=== PATIENT | male | born 1955 | race Hispanic/Latino ===

== ENCOUNTER 2019-06-17 20:32 | Inpatient (IN) | payer BC ==
[~2019-06-17] VITALS: Ht 180.3 cm; Wt 108.2 kg
[2019-06-17] MEDS ORDERED: ONDANSETRON HCL 4 MG/2 ML VIAL ONE (20:54)
[2019-06-17] MEDS ORDERED: MORPHINE SULFATE 4 MG/1ML SYG ONE ×2 (20:54→22:30)
[2019-06-17] MEDS ORDERED: SODIUM CHLORIDE 0.9% 1000ML 1,000 ML IV ONE (20:55)
[2019-06-17 21:13] LABS: APPEARANCE,URINE CLOUDY (CLEAR); BILIRUBIN,URINE SMALL (NEGATIVE); COLOR,URINE RED (YELLOW); GLUCOSE, URINE (UA) 100 mg/dL (NEGATIVE); KETONES,URINE 15 mg/dL (NEGATIVE); LEUKOCYTE ESTERASE ,URINE MODERATE (NEGATIVE); NITRATE,URINE POSITIVE (NEGATIVE); OCCULT BLOOD,URINE LARGE (NEGATIVE); PH,URINE 6.5 (5.0-8.0); PROTEIN,URINE >=300 mg/dL (NEGATIVE)
[2019-06-17 21:14] LABS: BASOPHILS % (AUTO) 1.1 % (0.0-5.0); EOSINOPHILS % (AUTO) 5.9 % (0.0-8.0); HEMATOCRIT 47.2 % (42-54); LYMPHOCYTES % (AUTO) 28.9 % (21.0-51.0); MEAN CORPUSCULAR HEMOGLOBIN 33.4 pg (27.0-33.0); MEAN CORPUSCULAR HGB CONC 33.9 g/dL (32.0-36.0); MEAN CORPUSCULAR VOLUME 98.7 fL (79-99); NEUTROPHILS % (AUTO) 53.1 % (40.0-77.0); PLATELET COUNT (AUTO) 167 K/uL (130-400); RED BLOOD CELL COUNT(AUTO) 4.78 MIL/uL (4.50-6.20); RED CELL DISTRIBUTION WIDTH 12.8 % (11.0-15.5); WHITE BLOOD COUNT (AUTO) 10.6 K/uL (4.8-10.8)
[2019-06-17] MEDS ORDERED: CEFTRIAXONE SODIUM 1 GM ONE (21:26)
[2019-06-17 21:27] LABS: CREATININE 0.8 mg/dL (0.5-1.5); POTASSIUM 3.5 mmol/L (3.5-5.1)
[2019-06-17 21:32] LABS: ALBUMIN 3.2 g/dL (3.5-5.0); BILIRUBIN,TOTAL 0.4 mg/dL (0.2-1.0); TOTAL PROTEIN, SERUM 7.2 g/dL (6.0-8.3)
[2019-06-17 21:40] LABS: BACTERIA,URINE Moderate /HPF (None Seen); RBC,URINE TNTC /HPF (0-1)
[2019-06-17 21:41] LABS: SQUAMOUS EPITHELIAL CELL,UR 0-2 /HPF (0-2)
[2019-06-17 22:07] LABS: INR 1.07 (0.85-1.15); PARTIAL THROMBOPLASTIN TIME 27.4 SEC (26.3-35.5); PROTHROMBIN TIME 11.2 SEC (9.6-11.6)
[2019-06-17] MEDS ORDERED: HYDRALAZINE HCL 20 MG/ML VIAL ONE (22:30)
[2019-06-18] MEDS: SODIUM CHLORIDE 0.9% 1000ML 1,000 ML IV SCH ×3 (00:25→21:11)
[2019-06-18] MEDS ORDERED: ONDANSETRON HCL 4 MG/2 ML VIAL IV PRN (00:30)
[2019-06-18] MEDS ORDERED: ACETAMINOPHEN 325 MG TAB PO PRN ×2 (00:30)
[2019-06-18] MEDS ORDERED: HYDRALAZINE HCL 20 MG/ML VIAL IV PRN (00:30)
[2019-06-18] MEDS: CEFTRIAXONE SODIUM 1 GM IV SCH (00:30)
[2019-06-18 07:38] LABS: ALBUMIN 2.8 g/dL (3.5-5.0); CREATININE 0.9 mg/dL (0.5-1.5); POTASSIUM 3.8 mmol/L (3.5-5.1); TOTAL PROTEIN, SERUM 6.4 g/dL (6.0-8.3)
[2019-06-18] MEDS ORDERED: METOPROLOL TARTRATE 25 MG TAB ONE (07:55)
[2019-06-18] MEDS ORDERED: SODIUM CHLORIDE 0.9% 1000ML 1,000 ML IV ONE (07:55)
[2019-06-18] MEDS ORDERED: FAMOTIDINE/PF 20 MG/2 ML VIAL IV ONE (07:55)
[2019-06-18] MEDS: FAMOTIDINE/PF 20 MG/2 ML VIAL IV SCH ×2 (09:00→19:53)
[2019-06-18] MEDS: METOPROLOL TARTRATE 25 MG TAB PO SCH ×2 (09:00→19:53)
[2019-06-18 15:39] VITALS: BP 132/74
[2019-06-18 19:01] VITALS: BP 143/78
[2019-06-18 23:43] VITALS: BP 143/80
[2019-06-19] MEDS: CEFTRIAXONE SODIUM 1 GM IV SCH (01:17)
[2019-06-19] MEDS: MORPHINE SULFATE 2 MG/ML 1ML SYG IV PRN (01:17)
[2019-06-19 04:00] VITALS: BP 126/92
[2019-06-19 05:36] LABS: HEMATOCRIT 44.1 % (42-54); LYMPHOCYTES % (AUTO) 28.2 % (21.0-51.0); MEAN CORPUSCULAR HEMOGLOBIN 34.4 pg (27.0-33.0); MEAN CORPUSCULAR HGB CONC 34.5 g/dL (32.0-36.0); MEAN CORPUSCULAR VOLUME 99.7 fL (79-99); MONOCYTES % (AUTO) 10.5 % (3.0-13.0); NEUTROPHILS % (AUTO) 55.3 % (40.0-77.0); PLATELET COUNT (AUTO) 132 K/uL (130-400); RED BLOOD CELL COUNT(AUTO) 4.42 MIL/uL (4.50-6.20); RED CELL DISTRIBUTION WIDTH 12.8 % (11.0-15.5); WHITE BLOOD COUNT (AUTO) 8.9 K/uL (4.8-10.8)
[2019-06-19] MEDS: SODIUM CHLORIDE 0.9% 1000ML 1,000 ML IV SCH (06:51)
[2019-06-19 07:30] VITALS: BP 145/82
--- NOTE | 2019-06-19 08:00 | NUR ---
NOTE PATIENT CAME IN YESTERDAY WITH HEMATURIA. HE WAS HAVING URINARY RETENTION WHILE IN ER WELL. HE HAD F/C PLACED. BLEEDING HAD STOPPED ALMOST IMMEDIATELY BUT WAS ALSO SCANNED AND A LARGE LEFT RENAL MASS DISCOVERED. 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 HE HAS BEEN WITHOUT BLOOD IN URINE, NO C/O PAIN. HE DOES HAVE H/O PROSTATE CANCER AND I WILL TRY TO GET PATHOLOGY REPORTS FOR DR WILLARD. FAMILY IS AT HIS SIDE.
[2019-06-19] MEDS: FAMOTIDINE/PF 20 MG/2 ML VIAL IV SCH ×2 (10:04→20:54)
[2019-06-19] MEDS: METOPROLOL TARTRATE 25 MG TAB PO SCH ×2 (10:04→20:54)
[2019-06-19 11:00] VITALS: BP 157/89
--- NOTE | 2019-06-19 11:50 | NUR ---
NOTE DR WILLARD MADE ROUNDS AND GAVE ORDERS FOR STUDIES AND CONSULT DR TIJERINA. SPOKE TO PATIENT AND FAMILY. EXPLAINED THAT HIS KIDNEY CANCER IS A SEPARATE ISSUE FROM HIS PROSTATE CANCER AND IT TAKES PRECEDENCE OVER THE PROSTATE PROBLEM. REFER TO CHART FOR ORDERS.
--- NOTE | 2019-06-19 13:38 | NUR ---
DCP CM met with pt discussed dc plans. Pt is independent prior to admission, lives at home w/spouse. Denies any equipments/services. Feels safe to go back home, spouse able to assist with transportation and needs as necessary. DC plan to home once stable. CM to cont to follow up. Addendum: 06/19/19 at 1339 by JOSE ANGEL GARCÍA LVN CM Amended: Links added.
[2019-06-19] MEDS ORDERED: IOHEXOL-350 50ML VIAL IV ONE (15:09)
[2019-06-19 16:00] VITALS: BP 160/91
--- NOTE | 2019-06-19 17:32 | NUR ---
NOTE REMAINS STABLE. NO C/O PAIN. DR TIJERINA HAS NOT COME TO SEE PATIENT BUT HE DID ORDER [address] ABDOMEN AND WILL BE DONE TOMORROW. I INFORMED HIM ACCORDING TO HANDMADE TILE ARTIST THAT PATIENT HAD JUST HAD CT CHEST WITH AND WITHOUT CONTRAST AND THER WOULD BE RESIDUAL CONTRAST FOUND SO HE DECIDED TO HAVE THE PATIENT DO THE SCAN IN AM TOMORROW. PATIENT HAS UNDERGONE CT CHEST AND HAS BEEN INJECTED WITH ISOTOPE FOR BONE SCAN TO BE DONE LATER TODAY.
[2019-06-19 19:11] VITALS: BP 138/88
--- NOTE | 2019-06-19 22:38 | NUR ---
MD KIMMY HAMMER VISITED WITH PATIENT AND FAMILY. POC DISCUSSED. NEW ORDERS RECEIVED AND CARRIED OUT. PATIENT AWARE. NO QUESTIONS OR CONCERNS VOICED AT THIS TIME. VITALS STABLE. AFEBRILE. TOLERATING IVF WELL. NS INFUSING AT 40ML/HR. NO SIGNS OF DISTRESS NOTED. UP AD TICO. QUIROGA PATENT AND DRAINING CLEAR YELLOW URINE TO BSD. FAMILY AT BEDSIDE. CALL LIGHT WITHIN REACH. WILL CONTINUE TO BE OBSERVED. Addendum: 06/19/19 at 2240 by ROSE RUBIN RN RN Amended: Links added.
[2019-06-20] VITALS: BP 154/72
[2019-06-20] MEDS: MORPHINE SULFATE 2 MG/ML 1ML SYG IV PRN (01:33)
[2019-06-20] MEDS: CEFTRIAXONE SODIUM 1 GM IV SCH (01:33)
[2019-06-20 03:19] VITALS: BP 135/80
[2019-06-20 05:29] LABS: BASOPHILS % (AUTO) 1.1 % (0.0-5.0); EOSINOPHILS % (AUTO) 6.9 % (0.0-8.0); HEMATOCRIT 43.8 % (42-54); LYMPHOCYTES % (AUTO) 24.3 % (21.0-51.0); MEAN CORPUSCULAR HEMOGLOBIN 34.6 pg (27.0-33.0); MEAN CORPUSCULAR HGB CONC 34.6 g/dL (32.0-36.0); MEAN CORPUSCULAR VOLUME 100.1 fL (79-99); NEUTROPHILS % (AUTO) 54.7 % (40.0-77.0); NUCLEATED RED BLOOD CELLS 0.1 % (0.0-0.19); PLATELET COUNT (AUTO) 140 K/uL (130-400); RED BLOOD CELL COUNT(AUTO) 4.37 MIL/uL (4.50-6.20); RED CELL DISTRIBUTION WIDTH 12.9 % (11.0-15.5); WHITE BLOOD COUNT (AUTO) 9.1 K/uL (4.8-10.8)
[2019-06-20 05:54] LABS: ALBUMIN 2.6 g/dL (3.5-5.0); BILIRUBIN,TOTAL 0.5 mg/dL (0.2-1.0); POTASSIUM 3.4 mmol/L (3.5-5.1); TOTAL PROTEIN, SERUM 6.3 g/dL (6.0-8.3)
[2019-06-20 07:54] VITALS: BP 152/97
[2019-06-20] MEDS ORDERED: LACTULOSE 20 GM/30 ML UDCUP PO PRN (08:45)
[2019-06-20] MEDS ORDERED: LIDOCAINE 5% TOPICAL PATCH TP SCH (09:00)
[2019-06-20] MEDS: FAMOTIDINE/PF 20 MG/2 ML VIAL IV SCH (09:22)
[2019-06-20] MEDS: METOPROLOL TARTRATE 25 MG TAB PO SCH (09:22)
[2019-06-20 11:56] VITALS: BP 147/90
[2019-06-20] MEDS ORDERED: POTASSIUM CHLORIDE 20 MEQ ERTAB PO ONE (12:38)
[2019-06-20] MEDS ORDERED: CEFD300C3 PO (13:14)
[2019-06-20] MEDS ORDERED: TRAM50TA2 PO (13:14)
[2019-06-20] MEDS ORDERED: POTASSIUM CHLORIDE 20 MEQ ERTAB PO SCH (14:00)
== END 2019-06-20 14:48 | disposition home or self-care (01) | DRG 687 ==
LOC: EDH 20:32 → EDHIP 06-18 00:25 → 4BH 06-18 15:09
PROVIDERS: ADMIT Internal Medicine; ATTEND Internal Medicine
DX: C64.9 Malignant neoplasm of unspecified kidney, except renal pelvis (principal); N13.6 Pyonephrosis; R31.0 Gross hematuria; C61 Malignant neoplasm of prostate; F10.20 Alcohol dependence, uncomplicated; E66.9 Obesity, unspecified; E78.00 Pure hypercholesterolemia, unspecified; E78.5 Hyperlipidemia, unspecified; I10 Essential (primary) hypertension; M43.17 Spondylolisthesis, lumbosacral region; Z68.33 Body mass index [BMI] 33.0-33.9, adult; Z87.891 Personal history of nicotine dependence
CPT/HCPCS: 36415; 71270; 74176; 78306; 80053; 81001; 83690; 85025; 85610; 85730; 87088; A9503; G0378; J0360; J0696; J2270; J2405; J3490; J7030; Q9967

== ENCOUNTER 2023-01-18 06:30 | Day surgery (SDC) | payer OTHER ==
[2023-01-12 11:25] VITALS: BP 127/67
[2023-01-12 11:39] LABS: BASOPHILS % (AUTO) 0.9 % (0.0-5.0); EOSINOPHILS % (AUTO) 6.3 % (0.0-8.0); LYMPHOCYTES % (AUTO) 18.7 % (21.0-51.0); MEAN CORPUSCULAR HEMOGLOBIN 29.4 pg (27.0-33.0); MEAN CORPUSCULAR HGB CONC 32.5 g/dL (32.0-36.0); MEAN CORPUSCULAR VOLUME 90.3 fL (79-99); MONOCYTES % (AUTO) 8.7 % (3.0-13.0); PLATELET COUNT (AUTO) 164 K/uL (130-400); RED BLOOD CELL COUNT(AUTO) 4.87 MIL/uL (4.50-6.20); RED CELL DISTRIBUTION WIDTH 13.6 % (11.0-15.5); WHITE BLOOD COUNT (AUTO) 6.8 K/uL (4.8-10.8)
[2023-01-12 11:51] LABS: INR 1.09 (0.85-1.15); PROTHROMBIN TIME 11.8 SEC (9.6-11.6)
[2023-01-12 11:52] LABS: PARTIAL THROMBOPLASTIN TIME 31.3 SEC (26.3-35.5)
[2023-01-12 12:03] LABS: CREATININE 1.2 mg/dL (0.5-1.5); POTASSIUM 4.7 mmol/L (3.5-5.1)
[~2023-01-18] VITALS: Ht 180.3 cm; Wt 112.9 kg
[2023-01-18] VITALS (17 sets, daily range): BP systolic 127–161; BP diastolic 65–106
[~2023-01-18 06:30] MED LIST: AMLO2.5T4 PO; APIX5TAB PO; CALC-991 PO; FISH1CAP63 PO; FURO20TA4 PO; METO100T14 PO; MULT-1258 PO; SIMV-43 PO; TAMS-1 PO
[2023-01-18] MEDS ORDERED: LACTATED RINGERS 1000ML 1,000 ML IV ONE (06:38)
[2023-01-18] MEDS: CEFAZOLIN SODIUM 1 GM VIAL ONE ×2 (07:01→08:55)
[2023-01-18] MEDS ORDERED: DEXAMETHASONE SOD PHOSPHATE 10MG/ML 1ML VIAL ONE (08:07)
[2023-01-18] MEDS ORDERED: LIDOCAINE PF 100MG/5ML (2%) SYRINGE 5ML ONE (08:07)
[2023-01-18] MEDS ORDERED: MIDAZOLAM HCL 1 MG/ML 2ML VIAL ONE (08:08)
[2023-01-18] MEDS ORDERED: PROPOFOL 10 MG/ML 20ML VIAL IV ONE (08:08)
[2023-01-18] MEDS ORDERED: ONDANSETRON 4MG INJ ONE (08:08)
[2023-01-18] MEDS ORDERED: FENTANYL CITRATE PF 50 MCG/1 ML 2ML VIAL ONE (08:08)
[2023-01-18] MEDS ORDERED: BACITRACIN 28.4 GM OINT TP ONE (08:15)
[2023-01-18] MEDS ORDERED: BUPIVACAINE/PF 0.25% 10ML VIAL IJ ONE (08:16)
[2023-01-18] MEDS ORDERED: KETOROLAC 30MG VIAL (30MG/ML) ONE (09:30)
== END 2023-01-18 11:40 | disposition home or self-care (01) ==
LOC: DAH 06:30
PROVIDERS: ATTEND Urology
DX: N47.1 Phimosis (principal); Z20.822 Contact with and (suspected) exposure to COVID-19; N48.6 Induration penis plastica; N47.5 Adhesions of prepuce and glans penis; I10 Essential (primary) hypertension; I48.91 Unspecified atrial fibrillation; Z79.01 Long term (current) use of anticoagulants
CPT/HCPCS: 80048; 85025; 85610; 85730; 87426; 36415; 71045; 93005; 54161; A6260; A4663; J7120 ×2; A4606; J3010; J0690; J1100; J2001; J2250; J2704; J2405; J1885; J3490; A4215; A4223; A4222; A4221; A4600

== ENCOUNTER → 2023-04-23 | Outpatient (CLI) | payer OTHER | END | disposition home or self-care (01) | LOC: SHCH 10:00 | PROVIDERS: ATTEND Internal Medicine Cardiovascular Disease | DX: I48.0 Paroxysmal atrial fibrillation (principal) | CPT/HCPCS: 93306 ==

== ENCOUNTER 2023-06-21 07:17 | Day surgery (SDC) | payer OTHER ==
[2023-06-19 11:19] VITALS: BP 124/68; PULSE 63; RESP 16
[2023-06-19 11:25] LABS: BASOPHILS # (AUTO) 0.08 K/uL (0.00-0.20); BASOPHILS % (AUTO) 1.1 % (0.0-5.0); EOSINOPHILS # (AUTO) 0.32 K/uL (0.00-0.70); EOSINOPHILS % (AUTO) 4.4 % (0.0-8.0); IMMATURE GRANULOCYTE ABSOLUTE 0.05 K/uL (0-1); LYMPHOCYTES # (AUTO) 1.2 K/uL (1.0-4.8); LYMPHOCYTES % (AUTO) 16.6 % (21.0-51.0); MEAN CORPUSCULAR HEMOGLOBIN 29.6 pg (27.0-33.0); MEAN CORPUSCULAR HGB CONC 32.7 g/dL (32.0-36.0); MEAN CORPUSCULAR VOLUME 90.5 fL (79-99); MONOCYTES # (AUTO) 0.7 K/uL (0.1-1.0); MONOCYTES % (AUTO) 9.5 % (3.0-13.0); NEUTROPHILS # (AUTO) 4.9 K/uL (1.8-7.7); NEUTROPHILS % (AUTO) 67.7 % (40.0-77.0); PLATELET COUNT (AUTO) 169 K/uL (130-400); RED BLOOD CELL COUNT(AUTO) 4.86 MIL/uL (4.50-6.20); RED CELL DISTRIBUTION WIDTH 14.3 % (11.0-15.5); WHITE BLOOD COUNT (AUTO) 7.3 K/uL (4.8-10.8)
[2023-06-19 11:31] LABS: CREATININE 1.4 mg/dL (0.5-1.5); POTASSIUM 4.2 mmol/L (3.5-5.1)
[2023-06-19 11:35] LABS: INR 1.12 (0.85-1.15); PROTHROMBIN TIME 12.9 SEC (9.6-11.6)
[2023-06-19 11:36] LABS: PARTIAL THROMBOPLASTIN TIME 32.3 SEC (26.3-35.5)
[2023-06-21] VITALS (13 sets, daily range): BP systolic 130–159; BP diastolic 64–89; PULSE 46–64; RESP 10–18
[~2023-06-21] VITALS: Ht 180.3 cm; Wt 110.1 kg
[2023-06-21] MEDS ORDERED: 0.9%NACL 1000ML 1,000 ML IV ONE (07:47)
[2023-06-21] MEDS ORDERED: AMIO200T68 PO (08:26)
[2023-06-21] MEDS ORDERED: PROPOFOL 10 MG/ML 20ML VIAL IV ONE ×2 (09:27→09:37)
== END 2023-06-21 12:30 | disposition home or self-care (01) ==
LOC: DAH 07:17
PROVIDERS: ATTEND Internal Medicine Cardiovascular Disease
DX: I48.19 Other persistent atrial fibrillation (principal); I25.10 Atherosclerotic heart disease of native coronary artery without angina pectoris; I10 Essential (primary) hypertension; E78.5 Hyperlipidemia, unspecified; Z83.3 Family history of diabetes mellitus; Z82.49 Family history of ischemic heart disease and other diseases of the circulatory system; Z87.891 Personal history of nicotine dependence; Z79.899 Other long term (current) drug therapy; Z98.890 Other specified postprocedural states
CPT/HCPCS: 80048; 85025; 85610; 85730; 36415; 93005 ×2; 92960; J7030; J2704; A4620; A4215; A4223 ×3; A7002; A4222; A4221; A4663; A4216; A4606; J3490